=== PATIENT | male | born 1945 | race Caucasian/White ===

== ENCOUNTER 2021-05-26 07:27 | Day surgery (SDC) | payer MEDICARE, BC ==
[2021-05-26] MEDS ORDERED: Midazolam 1 MG/ML 2 ML SDV IV ONE (07:28)
[2021-05-26] MEDS ORDERED: Sodium Chloride 0.9% 10 ML Syringe IV ONE (07:28)
[2021-05-26] MEDS ORDERED: Dexamethasone 4 MG/ML SDV IV ONE (07:28)
[2021-05-26] MEDS ORDERED: Sodium Chloride 0.9% 10 ML Syringe FLUSH PRN (07:30)
[2021-05-26] MEDS ORDERED: Cataract Ophth Solution EYELF ONE (07:30)
[2021-05-26] MEDS ORDERED: Timolol Maleate 0.5% Ophth Soln 5 ML Bottle EYELF ONE (07:30)
[2021-05-26] MEDS ORDERED: Phenylephrine 10% Ophth Soln 5 ML Bot EYELF ONE (07:30)
[2021-05-26] MEDS ORDERED: Proparacaine 0.5% Ophth Soln 15 ML Bottle EYELF ONE (07:30)
[2021-05-26] MEDS ORDERED: Tropicamide 1% Ophth Soln 15 ML Bottle EYELF ONE (07:30)
[2021-05-26] MEDS ORDERED: Acetaminophen/Codeine 300-30 MG Tab PO PRN (07:30)
[2021-05-26] MEDS ORDERED: Ondansetron 4 MG/2 ML SDV IVPUSH PRN (07:30)
[2021-05-26] MEDS ORDERED: Povidone-Iodine 5% Sterile Ophth Soln 30 ML Bottle EYELF ONE ×2 (07:30→08:51)
[2021-05-26] MEDS ORDERED: Acetaminophen 325 MG Tab PO PRN (07:30)
[2021-05-26] MEDS ORDERED: Moxifloxacin 0.5% Ophth Soln 3 ML Bottle EYELF ONE (07:30)
[2021-05-26] MEDS ORDERED: Lidocaine 1% 30 ML SDV ONE (08:50)
[2021-05-26] MEDS ORDERED: Tetracaine HCl/PF 0.5% 4 ML Bottle EYELF ONE (08:51)
[2021-05-26] MEDS ORDERED: Dexamethasone/Neomycin/Polymyxin B Ophth Oint 3.5 GM Tube EYELF ONE (08:51)
[2021-05-26] MEDS ORDERED: Diclofenac Sodium 0.1% Ophth Soln 5 ML Bottle EYELF ONE (08:51)
[2021-05-26] MEDS ORDERED: Apraclonidine 0.5% Ophth Soln 5 ML Bot EYELF ONE (08:51)
[2021-05-26] MEDS ORDERED: Chondroitin Sulfate/Hyaluronate Sodium Ophth Inj 0.75 ML Syringe EYELF ONE (08:51)
[2021-05-26] MEDS ORDERED: Balanced Salt Solution Ophth Irrig 500 ML Bottle IOCULAR ONE (08:51)
[2021-05-26] MEDS ORDERED: Chondroitin Sulfate/Hyaluronate Sodium Ophth Inj 0.5 ML Syringe IOCULAR ONE (08:52)
[2021-05-26] MEDS ORDERED: Vancomycin 500 MG SDV EYELF ONE (08:52)
[2021-05-26] MEDS ORDERED: Acetylcholine 20 MG/2 ML Intraocular Inj Kit EYELF ONE (08:52)
--- NOTE | 2021-05-28 01:40 | OR ---
DATE: 05/26/2021 PREOPERATIVE DIAGNOSES: 1. Visually significant mixed cataract, left eye. 2. Primary open angle glaucoma, left eye. POSTOPERATIVE DIAGNOSES: 1. Visually significant mixed cataract, left eye. 2. Primary open angle glaucoma, left eye. PROCEDURES: 1. Extracapsular cataract extraction with intraocular lens implant, left eye. 2. Placement of iStent for glaucoma control, left eye. SURGEON: Armando Fernandez MD ANESTHESIA: Local MAC. INDICATION: Mr. Vasquez was seen in the clinic. He is unhappy with his vision. He has difficulty seeing television, difficulty with bright lights and glare, difficulty seeing road signs, difficulty with activities of daily living. He also has difficulty golfing and seeing the golf ball, seeing newspapers, books, labels, and he is unhappy. He did see his regular party demonstrator, Dr. Costello. Dr. Costello was not able to improve his vision and meet his visual needs with a change in glasses. I have explained options, offered cataract surgery, and I explained risks including, but not limited to infection, retinal detachment, loss of vision, need for additional surgery amongst others. We have discussed implant options. He has requested a Symfony implant. I did explain the increased potential for glare, halo, and dysphotopsia. I also explained that he may still require glasses for some limited activities. He has a history of mild primary open-angle glaucoma and I recommended surgery with the iStent. OPERATIVE DESCRIPTION: The patient was prepped and draped in a sterile fashion and topical anesthesia was applied. Attention was placed on the operative eye. A sterile lid speculum was placed to allow operative exposure. Paracentesis was made temporal. Intracameral lidocaine was administered. Viscoelastic was injected. A full-thickness corneal incision was made using the trapezoidal blade. Bent needle cystotome was then used to make a small kavitha in the anterior capsule and a 360-degree curvilinear capsulorrhexis was created. Nucleus was then hydrodissected and hydrodelinated using balanced saline solution. Nucleus was then decompressed centrally and rotated and noted to be free of adhesions. Nucleus was then removed using the phacoemulsification handpiece. Additional viscoelastic was then injected into the capsular bag and the intraocular lens was inserted into the capsular bag. The iStent portion of the procedure was then performed. Following removal of the nucleus and cortex, the irrigation and aspiration handpiece was inserted to remove viscoelastic from the posterior surface of the IOL. Additional viscoelastic was then inserted into the anterior chamber angle directly opposite the corneal incision. Miochol was injected into the nasal iris to promote pupillary contraction. The patient's head was then rotated 35 degrees away from the initial position. The operating microscope was also rotated 35 degrees to achieve the proper orientation. The gonioprism was then placed onto the eye. The iStent was then inserted into the anterior chamber with the right hand and the stent was introduced into the pigmented trabecular meshwork. The stent was advanced beneath the trabecular meshwork until approximately two-thirds of the body was covered and then the stent was released from the insertion device. The stent was then tapped into its final resting position using the insertion device. The device was then reinspected to ensure that it was securely in position. The viscoelastic was aspirated from the anterior chamber. Wound and paracentesis sites were hydrated using balanced saline solution. Vancomycin 0.1 mL was injected into the anterior chamber. Intraocular lens was inspected and noted to be clear and well centered. Postoperative drops were placed and a sterile eye patch and shield were placed over the operative eye. The patient was then transported to the postoperative recovery area having tolerated the procedure well. No complications occurred. [facility] /[id number]
== END 2021-05-26 10:02 | disposition home or self-care (01) ==
LOC: DL.SDS 07:27
PROVIDERS: ATTEND Ophthalmology
DX: H26.8 Other specified cataract (principal); H40.1121 Primary open-angle glaucoma, left eye, mild stage; I10 Essential (primary) hypertension; G20 Parkinson's disease
CPT/HCPCS: 00142; 0191T; 66984; A9270; J1100; J2250; J3370; C1783